=== PATIENT | male | born 1965 | race Caucasian/White ===

== ENCOUNTER → 2016-11-07 | Day surgery (SDC) | payer OTHER ==
[~2016-11-07] MED LIST: BUPIVACAINE HCL PF 0.25% 30 ML VIAL ONE; BUPIVACAINE HCL PF 0.5% 10 ML VIAL ONE; CEPH500C3 PO; KETOROLAC TROMETHAMINE 30 MG/ML (IVP) VIAL IV PUSH ONE; LACTATED RINGER'S 1000 ML INJ 1,000 ML ONE; MIDAZOLAM HCL 2 MG/2 ML VIAL ONE; MUPI2OIN TOP; ONDANSETRON HCL 4 MG/2 ML VIAL IV PUSH ONE; PROPOFOL 200 MG/20 ML AMP IV ONE; SULF-154 PO; ceFAZolin 2 GM PREMIX 50 ML ONE
--- NOTE | 2016-11-07 20:24 | MP ---
cc: ISABEL MUNSON DPM DATE OF SURGERY: 11/07/2016. PREOPERATIVE DIAGNOSIS: 1. Left first MPJ osteoarthritis hallux limitus. 2. Left MPJ tendon contracture. POSTOPERATIVE DIAGNOSIS: Left first MPJ osteoarthritis hallux limitus. OPERATIVE PROCEDURE PERFORMED: 1. First MPJ exostectomy with interposition arthroplasty utilizing graft jacket. 2. Extensor hallucis longus tendon lengthening procedure. SURGEON: Isabel Munson DPM SPECIMEN: None. ESTIMATED BLOOD LOSS: Less than 30 mL. COMPLICATIONS: None. ANESTHESIA: LMA general with local 25 mL of 0.5% Marcaine plain. TOURNIQUET TIME: 53 minutes at a setting of 215 mmHg. PLAN OF ACTIVITY: Post-anesthesia care unit and then discharge home once stable for same day surgery criteria. JUSTIFICATION FOR THE PROCEDURE: 51-year-old male with worsening hallux limitus and radiographic signs of osteoarthritis. He failed conservative treatment. We reviewed surgical intervention, joint destructive and non joint- destructive. The patient did not want an implant or a fusion. However, he understood that there may be a return of pain or joint limitation range of motion that may precipitate the need for a second surgery. We devised a plan to move forward with the first MPJ exostectomy with interpositional arthroplasty. No guarantees were given or implied regarding the outcome. DESCRIPTION OF THE PROCEDURE IN DETAIL: Under mild sedation the patient was brought to the operating room and placed on the operating table in the supine position. Following the injection of 0.5% Marcaine plain, the patient's left foot was then scrubbed, prepped and draped in the usual aseptic fashion. The foot was elevated, exsanguinated and the previously placed midcalf tourniquet was inflated to 115 mmHg. An incision was made over the dorsal aspect of the first MPJ. This was just medial to the extensor hallucis longus tendon. Sharp and blunt dissection was carried down to the joint capsule. A linear incision was made revealing a large dorsal osteophyte which was then removed at the first MPJ revealing near complete loss of all cartilage of the first MPJ. A McGlamry elevator was introduced deep into the first MPJ freeing up any and all plantar adhesions. There was noted to be significant improvement in the patient's range of motion. The dorsal osteophyte of the base of the proximal phalanx was then transected as well. The wound was flushed with copious amounts of normal saline. Two drill holes were then placed through the dorsal head to serve as suture passing. The graft jacket which was approximately 1.75 mm in thickness was then sutured with two Ethibond suturing. These two tails were then pulled through the first metatarsal head and then the graft was sewn back upon itself covering the arthritic first MPJ to serve as an interpositional spacer. The first MPJ was brought through a range of motion. There was no movement of the graft. The wound was flushed with copious amounts of normal saline. At this time, it was noted that the extensor hallucis longus was noted to be bow strung. A Z-tendon lengthening extensor hallucis longus lengthening took place and then repaired to allow the hallux to have less of a hallux valgus drift. The capsule was then repaired utilizing Vicryl. The skin was closed utilizing nylon. Upon relieving the tourniquet, there was a prompt hyperemic response to all digits without any delayed capillary fill time. A bulky bandage was placed. The patient was transferred from the operating room to the post-anesthesia care unit with all vital signs stable. The patient is heel transfer weight bear to tolerance. The patient will ice, elevate. I will see the patient in three to five days. DARIN Pak/MARCE /4:16 PM /7:05 PM
== END | disposition home or self-care (01) ==
LOC: ESDC 13:50
PROVIDERS: ATTEND Podiatrist Foot & Ankle Surgery
DX: M20.5X2 Other deformities of toe(s) (acquired), left foot (principal); M24.572 Contracture, left ankle; M19.072 Primary osteoarthritis, left ankle and foot
CPT/HCPCS: 00400; 01470; 01480; 15275; 28234; 28291; 73620; 76000; J0690; J1885; J2250; J2405; J3010; J7120; Q4107